=== PATIENT | male | born 1955 | race Two or more races ===

== ENCOUNTER 2022-02-08 07:11 | Emergency (ER) | payer OTHER ==
[~2022-02-08] VITALS: Ht 172.7 cm; Wt 108.4 kg
[2022-02-08 09:36] LABS: BASOPHILS % 0.6 % (0.0-2.0); HEMATOCRIT. 41.4 % (42.0-52.0); HEMOGLOBIN. 14.2 g/dL (14.0-18.0); LYMPHOCYTES % 25.9 % (20.0-50.0); MEAN CORPUSCULAR HEMOGLOBIN 32.7 pg (28.0-32.0); MEAN CORPUSCULAR VOLUME 95.3 fL (80.0-94.0); MEAN PLATELET VOLUME 7.3 fl (7.4-10.4); MONOCYTES % 6.8 % (2.0-8.0); NEUTROPHILS % 65.7 % (40.0-76.0); PLATELET 287 x1000/uL (130-400); RED BLOOD CELL COUNT 4.34 mill/uL (4.7-6.1); RED CELL DISTRIBUTION WIDTH 14.2 % (11.6-14.6)
[2022-02-08 09:46] LABS: CHLORIDE 107 mEq/L (98-107)
[2022-02-08 12:14] VITALS: BP 120/63
== END 2022-02-08 12:42 | disposition home or self-care (01) ==
LOC: ER 07:11 → EDBEDREQ 09:08 → ER 12:42 → CANBEDREQ 17:06
DX: R07.89 Other chest pain (principal)
CPT/HCPCS: 36415; 71045; 80053; 83880; 84484; 85025; 93005; 99285